=== PATIENT | female | born 1950 | race Caucasian/White ===

== ENCOUNTER → 2019-02-01 12:45 | Outpatient (CLI) | payer MEDICARE, SELFPAY ==
--- NOTE | 2019-02-01 12:53 | CT_ITS ---
CT lung screening EXAM: CT LUNG LOW DOSE WO CONTRAST HISTORY: 100 pack year smoking history asymptomatic for lung cancer ITS.REASON: CURRENT TOBACCO USE ORDERING PHYSICIAN: Fahad Atwood MD PATIENT AGE: 68 years COMPARISON: None TECHNIQUE: The exam was performed on a GE Light Speed [address] scanner using 2.90 mGy CTDI. A low dose helical CT CHEST was performed on a multi-detector scanner. All CT scans at the facility use one or more dose reduction, viz: automated exposure control, ma/kV adjustment per patient size (including targeted exams where dose is matched to indication, i.e. head), or iterative reconstruction technique. The LDCT was performed in a facility that meets the criteria for the screening program. Data regarding this exam was submitted to ACR which is an approved registry. The order for this exam indicates that it came as a result of a lung cancer screening counseling shard decision-making visit that included all the elements required of such a visit including smoking cessation. The radiologist interpreting this exam meets the CMS criteria for the LDCT lung cancer screening program. The exam is reported using the Lung-RADS classification scale and reported to the ACR registry. NOTE: This study was performed for the specific purposes of lung cancer screening and is not an alternative to diagnostic chest CT. RADIATION DOSE: CTDI vol(CT dose Index-volume) = 2.90mG DLP (Dose Length Product) = 96.38 mGcm FINDINGS: COPD changes with scattered nodular opacities and areas of parenchymal fibrosis. Numerous scattered small pulmonary nodules are noted which are noncalcified. There is a calcified nodule in the right lower lobe unchanged. Biapical fibrotic changes are present more extensive on the right. There is an 8 mm nodule in the right apex unchanged. Fibrotic changes are present in the right apex posterior to this nodule.. No new nodules are evident. A stent graft is present within the aorta as before. IMPRESSION: 1. Lung RADS Category: 2, benign 2. Other findings: COPD, old granulomatous disease with scattered areas of scarring. Benign-appearing small bilateral pulmonary nodules. RECOMMENDATIONS: 12 month LDCT follow-up
== END ==
PROVIDERS: PCP Family Medicine; Visit Provider Family Medicine
DX: Z12.2 Encounter for screening for malignant neoplasm of respiratory organs (principal); Z87.891 Personal history of nicotine dependence

== ENCOUNTER 2020-04-29 17:17 | Inpatient (IN) | payer MEDICARE, SELFPAY ==
[2020-04-29] VITALS (12 sets, daily range): BP systolic 94–148; BP diastolic 74–100; PULSE 64–121; RESP 16–18; TEMP 36.4–37.1; O2SAT 94–99; BMI 14.7; BMI 14.6; BMI 12.3
--- NOTE | 2020-04-29 17:26 | PC.NURSE ---
called ct for stroke protocal
--- NOTE | 2020-04-29 17:29 | CT_ITS ---
PROCEDURE: CT HEAD/BRAIN WO CON CLINICAL INDICATION: weakness Altered mental status, altered level of consciousness, confusion, disorientation Right-sided weakness COMPARISON: No exams were available for comparison TECHNIQUE: Axial images obtained. All CT scans at the facility use one or more dose reduction, viz: automated exposure control, ma/kV adjustment per patient size (including targeted exams where dose is matched to indication, i.e. head), or iterative reconstruction technique. FINDINGS: No midline shift, mass effect, intracranial hemorrhage, hydrocephalus, or extra-axial fluid collection is evident. There is generalized atrophy with hypoattenuation of the periventricular white matter consistent with microangiopathic changes. The calvarium has an unremarkable appearance. No mastoid effusion. Mild mucosal thickening noted in the left ethmoid sinus. IMPRESSION: No acute intracranial finding Dictated by: Dallin Busch MD 04/30/2020 08:47 Electronically signed by Dallin Busch MD in [place] 04/30/2020 08:47
--- NOTE | 2020-04-29 17:29 | PC.NURSE ---
RIDDHI MÉNDEZ at
--- NOTE | 2020-04-29 17:33 | PC.NURSE ---
pt taken to ct
--- NOTE | 2020-04-29 17:33 | PC.NURSE ---
fsbs 60
--- NOTE | 2020-04-29 17:36 | XR_ITS ---
PROCEDURE: XR CHEST PORTABLE CLINICAL HISTORY: weakness COMPARISON: CXR CHEST(2 VIEWS-NOT PORTABLE) from 01/24/2013 FINDINGS: Normal heart size. Prior aortic stent graft placed within the thoracic aorta. Mild biapical pleural thickening. Calcified granuloma right midlung. No lobar consolidation or collapse. No acute bony abnormalities. IMPRESSION: No acute findings. Dictated by: Dallin Busch MD 04/29/2020 19:43 Electronically signed by Dallin Busch MD in [place] 04/29/2020 19:43
--- NOTE | 2020-04-29 17:38 | PC.NURSE ---
nell notified of cxr, spoke with fannie
[2020-04-29 18:07] LABS: POC Glucose,Bedside 60 (70-110)
[2020-04-29 18:29] LABS: Basophils % 0.1 % (0.1-2.0); Hematocrit 38.3 % (37.0-47.0); Hemoglobin 11.7 g/dL (12.2-16.2); Mean Corpuscular HGB Conc 30.6 g/dL (31.8-35.4); Mean Corpuscular Hemoglobin 24.3 pg (27.0-31.2); Mean Corpuscular Volume 79.6 fl (81-99); Mean Platelet Volume 7.6 fl (7.4-10.4); Monocytes # 0.8 K/mm3 (0.1-1.0); Neutrophils # 17.4 K/mm3 (1.8-7.8); Neutrophils % 85.9 % (37.0-80.0); Platelet Count 148 K/mm3 (142-424); Red Blood Count 4.81 M/mm3 (4.20-5.40); Red Cell Distribution Width 21.1 % (11.5-17.5); White Blood Count 20.3 K/mm3 (4.8-10.8)
[2020-04-29 18:33] LABS: Chloride 104 mmol/L (98-107); Potassium 3.6 mmoL/L (3.5-5.1); Sodium 138 mmol/L (136-145)
[2020-04-29 18:34] LABS: MANUAL DIFFERENTIAL MANUAL DIFFERENTIAL (MANUAL DIFF)
[2020-04-29 18:35] LABS: Blood Urea Nitrogen 25 mg/dl (7-17); Creatinine Clearance Estimated 30 mL/min (50-200); Estimated Glomerular Filt Rate 157 ml/min (>60); GFR (African American) 190 ML/MIN (>60)
[2020-04-29 18:36] LABS: Alanine Aminotransferase 21 U/L (12-78); Albumin Level 2.1 g/dl (3.5-5.0); Albumin/Globulin Ratio 0.6 (1.1-1.8); Alkaline Phosphatase 125 U/L (38-126); Anion Gap 13.6 mEq/L (5-15); Aspartate Amino Transferase 30 U/L (14-36); Bilirubin,Total 0.5 mg/dl (0.2-1.3); Calcium 7.9 mg/dl (8.4-10.2); Carbon Dioxide 24 mmol/L (22.0-30.0); Globulin 3.8 g/dL (1.3-3.2); Glucose 59 mg/dl (74-100); Total Protein,Serum 5.9 g/dl (6.3-8.2)
--- NOTE | 2020-04-29 18:40 | HMH.EDNEU ---
ED Disposition Clinical Impression: Delirium, Severe sepsis with acute organ dysfunction UTI (urinary tract infection) Qualifiers: Urinary tract infection type: site unspecified Hematuria presence: without hematuria Qualified Code(s): N39.0 - Urinary tract infection, site not specified Disposition: Admitted As Inpatient Condition on Discharge: Fair - Critical Care Critical Care Time: No Attestation: On 04/29/20, the high probability of a clinically significant, sudden or life threatening deterioration of the following system(s) required my full and direct attention, intervention and personal management. The time I documented below is in addition to time spent performing reported procedures but includes the following listed in this critical care notation. Medical Decision Making - Medical Records Medical records reviewed: Yes: I reviewed the patient's medical records. - Stevie Inquiry Pt receiving controlled substance: No Vital Signs: 04/29/20 17:22 04/29/20 18:30 04/29/20 19:00 Temperature 97.6 F Temperature Source Oral Pulse Rate [Left Radial] 64 103 H Respiratory Rate 18 18 17 Blood Pressure [Left Arm] 148/95 H Blood Pressure [Right Arm] 112/78 147/95 H Blood Pressure Mean [Left Arm] 112 Blood Pressure Mean [Right Arm] 89 112 Blood Pressure Source [Left Arm] Automatic Cuff Blood Pressure Source [Right Arm] Automatic Cuff Automatic Cuff Blood Pressure Position [Left Arm] Sitting Blood Pressure Position [Right Arm] Supine Supine 02 Sat by Pulse Oximetry 94 L 96 98 Oxygen Delivery Method Room Air Room Air Room Air 04/29/20 19:30 04/29/20 20:00 Temperature Temperature Source Pulse Rate [Left Radial] 98 H 96 H Respiratory Rate 17 18 Blood Pressure [Left Arm] Blood Pressure [Right Arm] 117/100 H 130/89 Blood Pressure Mean [Left Arm] Blood Pressure Mean [Right Arm] 105 102 Blood Pressure Source [Left Arm] Blood Pressure Source [Right Arm] Automatic Cuff Automatic Cuff Blood Pressure Position [Left Arm] Blood Pressure Position [Right Arm] Supine Supine 02 Sat by Pulse Oximetry 98 98 Oxygen Delivery Method Room Air Room Air - Lab Data Lab results reviewed: Yes: I reviewed the patient's lab results. Lab Results 04/29/20 17:32: POC Glucose 60 L 04/29/20 18:17: WBC 20.3 H*, RBC 4.81, Hgb 11.7 L, Hct 38.3, MCV 79.6 L, MCH 24.3 L, MCHC 30.6 L, RDW 21.1 H, Plt Count 148, MPV 7.6, Neut % (Auto) 85.9 H, Lymph % (Auto) 10.0, [place] % (Auto) 4.0, Eos % (Auto) 0.0 L, Baso % (Auto) 0.1, Neut # (Auto) 17.4 H, Lymph # (Auto) 2.0, [place] # (Auto) 0.8, Eos # (Auto) 0.0, Baso # (Auto) 0.0, Total Counted 100, Neutrophils % (Manual) 84 H, Lymphocytes % (Manual) 11, Monocytes % (Manual) 5, Platelet Estimate Normal, RBC Morphology Normal 04/29/20 18:17: Sodium 138, Potassium 3.6, Chloride 104, Carbon Dioxide 24, Anion Gap 13.6, BUN 25 H, Creatinine 0.40 L, Estimated Creat Clear 30, Estimated GFR 157, Est GFR ( Amer) 190, Glucose 59 L, Calcium 7.9 L, Total Bilirubin 0.5, AST 30, ALT 21, Alkaline Phosphatase 125, Troponin I < 0.01, Total Protein 5.9 L, Albumin 2.1 L, Globulin 3.8 H, Albumin/Globulin Ratio 0.6 L 04/29/20 18:45: Lactate 2.6 H 04/29/20 19:04: Urine Color Yellow, Urine Appearance Cloudy, Urine pH 6.5, Ur Specific [place] >= 1.030, Urine Protein 3+, Urine Glucose (UA) Negative, Urine Ketones 2+, Urine Blood 3+, Urine Nitrate Positive, Urine Bilirubin Negative, Urine Urobilinogen 2.0, Ur Leukocyte Esterase 2+ A, Urine WBC 5-10, Ur Squamous Epith Cells Occasional, Urine Bacteria 1+ 04/29/20 20:38: Troponin I < 0.01 Result diagrams: 04/29/20 18:17 04/29/20 18:17 Orders (Tests/Meds): ED MEDICATIONS Generic Name Dose Route Start Last Admin Trade Name Freq PRN Reason Stop Dose Admin Ertapenem 1 gm/ Sodium 50 mls @ 100 mls/hr 04/29/20 20:30 04/29/20 21:23 Chloride IV 05/13/20 20:29 100 mls/hr Q24H HARRISON Administration Protocol ORDERS Category Date Time Status CT
[2020-04-29 18:51] LABS: Troponin I < 0.01 ng/ml (0.00-0.034)
--- NOTE | 2020-04-29 19:04 | PC.NURSE ---
urine specimen collected via cath; sent to lab
[2020-04-29 19:08] LABS: Microscopic, Urine URINE MICROSCOPIC (MICROSCOPIC)
[2020-04-29 19:11] LABS: Lactic Acid 2.6 mmol/L (0.7-2.1)
[2020-04-29 19:15] LABS: Blood, Urine 3+ (Negative); Color,Urine YELLOW (Yellow); Glucose,Urine (UA) Negative (Negative); Ketones,Urine 2+ (Negative); Leukocyte Esterase,Urine 2+ (Negative); Nitrate,Urine POSITIVE (Negative); PH,Urine 6.5 (5.0-8.5); Protein,Urine 3+ (Negative); Specific Gravity, Urine >= 1.030 (1.005-1.030)
[2020-04-29 19:16] LABS: Appearance,Urine Cloudy (Clear); Bilirubin,Urine Negative (Negative)
--- NOTE | 2020-04-29 19:19 | PC.NURSE ---
report given to Ricorn
--- NOTE | 2020-04-29 19:21 | ECG_ITS ---
APPROVED REPORT Exam: Resting ECG HR:103 bpm ECG Measurements Heart Rate 103 AXES OK 142 P 78 QRSd 86 QRS -58 QT 350 T 81 QTc 458 <Conclusion> Sinus tachycardia,Pac's Noted Left anterior fascicular block Incomplete RBBB Abnormal ECG Electronically signed by : Alvin Samson, 05/01/2020 16:37:45
[2020-04-29 19:31] LABS: Lymphocytes % 11 % (10-50); Monocytes % 5 % (2-9); Neutrophils % 84 % (42-76); RBC Morphology Normal; Total Cells Counted 100
[2020-04-29 19:32] LABS: Platelet Estimate Normal
[2020-04-29 19:41] LABS: Bacteria,Urine 1+ /lpf; Squamous Epithelial Cell,Urine Occasional #/hpf (0-5)
--- NOTE | 2020-04-29 20:24 | PC.NURSE ---
speaking with Dr. Sosa
[2020-04-29 21:18] LABS: Troponin I < 0.01 ng/ml (0.00-0.034)
--- NOTE | 2020-04-29 22:28 | PC.NURSE ---
attempted to give report to MARYANNE Shah asked to call me back
[2020-04-29 22:50] LABS: Reflex Lactic Add Lactic Reflex
--- NOTE | 2020-04-29 23:19 | PC.NURSE ---
report called to MARYANNE Duckworth
--- NOTE | 2020-04-29 23:20 | PC.NURSE ---
this nurse told TJ about pt having difficulty swallowing and recommended a swallow eval. in the AM
[2020-04-29 23:23] LABS: Lactic Acid Follow Up (RFLX 1) 3.9 mmol/L (0.7-2.1)
--- NOTE | 2020-04-29 23:32 | PC.NURSE ---
PT ARRIVED TO THE FLOOR VIA STRETCHER FROM ED @ [id number].
[2020-04-30] VITALS (62 sets, daily range): BP systolic 32–153; BP diastolic 00–75; PULSE 66–124; RESP 16–38; TEMP 35.1–37.1; O2SAT 90–100
[2020-04-30 01:05] LABS: Reflex Lactic (2 hrs) Add Lactic Reflex
[2020-04-30 01:42] LABS: Lactic Acid Follow up (RFLX 2) 3.2 mmol/L (0.7-2.1)
[2020-04-30 05:54] LABS: POC Glucose,Bedside 63 (70-110)
--- NOTE | 2020-04-30 05:54 | ECG_ITS ---
APPROVED REPORT Exam: Resting ECG HR:114 bpm ECG Measurements Heart Rate 114 AXES ID 138 P 77 QRSd 70 QRS -61 QT 328 T -82 QTc 452 <Conclusion> Sinus tachycardia Possible Left atrial enlargement Left anterior fascicular block ST & T wave abnormality, consider inferior ischemia Abnormal ECG Electronically signed by : Enrike Forbes, 04/30/2020 15:33:57
[2020-04-30 06:08] LABS: ABG PCO2 24.2 mmhg (35.0-45.0); ABG PH 7.44 mmol/L (7.35-7.45)
[2020-04-30 06:09] LABS: ABG Base Excess -8.2 mmol/L (-2.4-2.3); ABG Oxygen Saturation 98 % (90-100); ABG TCO2 16 mmhg (23-27)
[2020-04-30 06:10] LABS: Allen's Test Non Applicable; Oxygen 2LPM NC %; Source Right Femoral
[2020-04-30 06:21] LABS: Basophils % 0.1 % (0.1-2.0); Hematocrit 31.8 % (37.0-47.0); Lymphocytes # 1.1 K/mm3 (0.7-4.5); Lymphocytes % 4.8 % (10-50); Mean Corpuscular HGB Conc 31.9 g/dL (31.8-35.4); Mean Corpuscular Volume 78.4 fl (81-99); Mean Platelet Volume 7.8 fl (7.4-10.4); Monocytes # 0.6 K/mm3 (0.1-1.0); Monocytes % 2.8 % (1.7-9.3); Neutrophils # 21.1 K/mm3 (1.8-7.8); Neutrophils % 92.3 % (37.0-80.0); Platelet Count 137 K/mm3 (142-424); Red Blood Count 4.05 M/mm3 (4.20-5.40); Red Cell Distribution Width 21.7 % (11.5-17.5); White Blood Count 22.8 K/mm3 (4.8-10.8)
[2020-04-30 06:22] LABS: MANUAL DIFFERENTIAL MANUAL DIFFERENTIAL (MANUAL DIFF)
[2020-04-30 06:24] LABS: Hemoglobin 10.1 g/dL (12.2-16.2)
[2020-04-30 06:25] LABS: Chloride 110 mmol/L (98-107); Potassium 3.9 mmoL/L (3.5-5.1); Sodium 138 mmol/L (136-145)
[2020-04-30 06:28] LABS: Anion Gap 15.9 mEq/L (5-15); Blood Urea Nitrogen 28 mg/dl (7-17); Calcium 7.3 mg/dl (8.4-10.2); Carbon Dioxide 16 mmol/L (22.0-30.0); Creatinine Clearance Estimated 28 mL/min (50-200); Estimated Glomerular Filt Rate 62 ml/min (>60); GFR (African American) 75 ML/MIN (>60); Glucose 73 mg/dl (74-100); Magnesium 1.9 mg/dl (1.6-2.3)
--- NOTE | 2020-04-30 06:38 | HMH.RR ---
Acute Rapid Response Note - Subjective Date Responded: 04/30/20 Time Responded: 06:00 Provider Note: called to bedside as pt has dev change in mental status- obtunded now but has stable vs and no rhythm change - pt unable to answer questions at this time - Objective Findings: Vital Signs - Last 4 Hours Temperature 98.7 F 04/30/20 04:00 Temperature Source Axillary 04/30/20 04:00 Pulse Rate 114 H 04/30/20 04:00 Respiratory Rate 16 04/30/20 04:00 Blood Pressure 153/66 H 04/30/20 04:00 Blood Pressure Mean 95 04/30/20 04:00 Blood Pressure Source Automatic Cuff 04/30/20 00:48 Blood Pressure Position Supine 04/30/20 00:48 02 Sat by Pulse Oximetry 98 04/30/20 04:00 Oxygen Delivery Method 04/30/20 05:00 Oxygen Flow Rate (LPM) 1 04/30/20 05:00 Lab Results for Past 12 Hours 04/30/20 06:05: Sodium 138, Potassium 3.9, Chloride 110 H, Carbon Dioxide 16 L D, Anion Gap 15.9 H, BUN 28 H, Creatinine 0.90 D, Estimated Creat Clear 28, Estimated GFR 62, Est GFR ( Amer) 75 D, Glucose 73 L D, Calcium 7.3 L, Magnesium 1.9 04/30/20 06:05: WBC 22.8 H*, RBC 4.05 L, Hgb 10.1 L D, Hct 31.8 L, MCV 78.4 L, MCH 25.0 L, MCHC 31.9, RDW 21.7 H, Plt Count 137 L, MPV 7.8, Neut % (Auto) 92.3 H, Lymph % (Auto) 4.8 L, [place] % (Auto) 2.8, Eos % (Auto) 0.0 L, Baso % (Auto) 0.1, Neut # (Auto) 21.1 H, Lymph # (Auto) 1.1, [place] # (Auto) 0.6, Eos # (Auto) 0.0, Baso # (Auto) 0.0 04/30/20 06:00: Specimen Source Right femoral, O2 % 2lpm nc, ABG pH 7.44, ABG pCO2 24.2 L, ABG pO2 109.0 H, ABG HCO3 16.0 L, ABG Total CO2 16 L, ABG O2 Saturation 98, ABG Base Excess -8.2 L, Dallin Test Non applicable 04/30/20 05:47: POC Glucose 63 L 04/30/20 01:20: Lactate 3.2 H 04/29/20 23:04: Lactate 3.9 H 04/29/20 20:38: Troponin I < 0.01 04/29/20 19:04: Urine Color Yellow, Urine Appearance Cloudy, Urine pH 6.5, Ur Specific [place] >= 1.030, Urine Protein 3+, Urine Glucose (UA) Negative, Urine Ketones 2+, Urine Blood 3+, Urine Nitrate Positive, Urine Bilirubin Negative, Urine Urobilinogen 2.0, Ur Leukocyte Esterase 2+ A, Urine WBC 5-10, Ur Squamous Epith Cells Occasional, Urine Bacteria 1+ 04/29/20 18:45: Lactate 2.6 H 04/29/20 18:17: Sodium 138, Potassium 3.6, Chloride 104, Carbon Dioxide 24, Anion Gap 13.6, BUN 25 H, Creatinine 0.40 L, Estimated Creat Clear 30, Estimated GFR 157, Est GFR ( Amer) 190, Glucose 59 L, Calcium 7.9 L, Total Bilirubin 0.5, AST 30, ALT 21, Alkaline Phosphatase 125, Troponin I < 0.01, Total Protein 5.9 L, Albumin 2.1 L, Globulin 3.8 H, Albumin/Globulin Ratio 0.6 L 04/29/20 18:17: Total Counted 100, Neutrophils % (Manual) 84 H, Lymphocytes % (Manual) 11, Monocytes % (Manual) 5, Platelet Estimate Normal, RBC Morphology Normal My Orders Category Date Time Status Activity as ordered ORDER Care 04/29/20 22:11 Active Szymanski, Insert [Urinary Catheter, Insert] ONCE Care 04/30/20 06:33 Active Measure weight DAILY Care 04/29/20 22:11 Active Basic Metabolic Panel AMLAB Lab 04/30/20 06:05 Completed CMP [Comprehensive Metabolic Panel] Stat Lab 04/30/20 06:34 Ordered Complete Blood Count Auto Diff AMLAB Lab 04/30/20 06:05 Results Complete Blood Count Auto Diff Stat Lab 04/30/20 06:34 Ordered Lactic Acid Follow Up (RFLX 1) Stat Lab 04/29/20 23:04 Completed Lactic Acid Follow up (RFLX 2) Stat Lab 04/30/20 01:20 Completed Magnesium AMLAB Lab 04/30/20 06:05 Completed 0.9 % Sodium Chloride [Saline Flush 10mL Syringe] Med 04/29/20 22:11 Ordered 10 ml IV NEEDED PRN 0.9 % Sodium Chloride [Sod Chlor 0.9% 1000mL Bag] 1,000 Med 04/29/20 22:11 Ordered ml IV 75 mls/hr Acetaminophen [Acetaminophen 325mg tab] Med 04/29/20 22:11 Ordered 650 mg PO Q4HP PRN Ertapenem Sodium [Invanz 1gm Vial] 1 gm Med 04/30/20 20:30 Ordered 0.9 % Sodium Chloride [Sod Chlor 0.9% 50mL bag] 50 ml IV Q24H Ondansetron HCl/Pf [Zofran 4mg/2mL vial] Med 04/29/20 22:11 Ordered 4 mg IV Q8HP PRN Admit Patient; Inpt/Acute Routine Oth
--- NOTE | 2020-04-30 07:08 | HMH.PHAVTE ---
[facility] Pharmacy VTE Monitoring - Patient Demographics Admission date: 04/29/20 Report Date: 04/30/20 Time: 07:08 Allergies/Adverse Reactions: Patient Allergies iodine Allergy (Unknown, Verified 04/30/20 06:56) Unknown allergy reaction povidone-iodine [From Iodex] Allergy (Unknown, Verified 04/30/20 06:56) Unknown allergy reaction IODINE Allergy (Unknown, Uncoded 04/30/20 06:55) Unknown allergy reaction SHELLFISH Allergy (Unknown, Uncoded 04/30/20 06:55) Unknown allergy reaction Height: 1.68 m Weight: 34.7 kg Patient Problems: Current Active Problems Delirium (Acute) UTI (urinary tract infection) (Acute) Severe sepsis with acute organ dysfunction (Acute) - VTE Risk Labs: VTE Related Lab Results Hgb 10.1 g/dL (12.2-16.2) L D 04/30/20 06:05 Hct 31.8 % (37.0-47.0) L 04/30/20 06:05 Plt Count 137 K/mm3 (142-424) L 04/30/20 06:05 BUN 28 mg/dl (7-17) H 04/30/20 06:05 Creatinine 0.90 mg/dl (0.52-1.04) D 04/30/20 06:05 Estimated Creat Clear 28 mL/min (50-200) 04/30/20 06:05 VTE Score: 4 Clinical Trial Participant: No - Prophylaxis VTE Prophylaxis Ordered?: Yes Types of VTE Prophylaxis: TEDS Knee High
--- NOTE | 2020-04-30 07:09 | HMH.ACPN2 ---
Internal Medicine - PN: Subj *Date: 04/30/20 *Time: 07:09 Interval history: This 69-year-old white female is chronically debilitated. She had grown progressively weaker and was brought to the emergency room during the night. Her caregiver reported along with the progressive weakness a facial droop on the right. Patient was admitted from the emergency room with concerns of urinary tract infection. Dr. Flynn was called to rapid response early this morning because the patient had become more obtunded. Blood gas at that time was adequate but indeed she was less responsive. CT was obtained on admission and did not show any evidence of a stroke but of course that is a consideration. Dr. Flynn called me and I came in to see the patient this morning. She is quite obtunded. She has no respiratory distress. She is small and frail. Her heart rate is regular. Lungs seem clear and there is no respiratory distress. Abdomen is soft. Her urine is quite brown looking. She has no leg edema. Exam Vital signs and Labs for Last 24 Hours: Temp Pulse Resp BP Pulse Ox 98.7 F 114 H 16 153/66 H 98 04/30/20 04:00 04/30/20 04:00 04/30/20 04:00 04/30/20 04:00 04/30/20 04:00 Laboratory Results - last 24 hr 04/29/20 17:32: POC Glucose 60 L 04/29/20 18:17: WBC 20.3 H*, RBC 4.81, Hgb 11.7 L, Hct 38.3, MCV 79.6 L, MCH 24.3 L, MCHC 30.6 L, RDW 21.1 H, Plt Count 148, MPV 7.6, Neut % (Auto) 85.9 H, Lymph % (Auto) 10.0, [place] % (Auto) 4.0, Eos % (Auto) 0.0 L, Baso % (Auto) 0.1, Neut # (Auto) 17.4 H, Lymph # (Auto) 2.0, [place] # (Auto) 0.8, Eos # (Auto) 0.0, Baso # (Auto) 0.0, Total Counted 100, Neutrophils % (Manual) 84 H, Lymphocytes % (Manual) 11, Monocytes % (Manual) 5, Platelet Estimate Normal, RBC Morphology Normal 04/29/20 18:17: Sodium 138, Potassium 3.6, Chloride 104, Carbon Dioxide 24, Anion Gap 13.6, BUN 25 H, Creatinine 0.40 L, Estimated Creat Clear 30, Estimated GFR 157, Est GFR ( Amer) 190, Glucose 59 L, Calcium 7.9 L, Total Bilirubin 0.5, AST 30, ALT 21, Alkaline Phosphatase 125, Troponin I < 0.01, Total Protein 5.9 L, Albumin 2.1 L, Globulin 3.8 H, Albumin/Globulin Ratio 0.6 L 04/29/20 18:45: Lactate 2.6 H 04/29/20 19:04: Urine Color Yellow, Urine Appearance Cloudy, Urine pH 6.5, Ur Specific [place] >= 1.030, Urine Protein 3+, Urine Glucose (UA) Negative, Urine Ketones 2+, Urine Blood 3+, Urine Nitrate Positive, Urine Bilirubin Negative, Urine Urobilinogen 2.0, Ur Leukocyte Esterase 2+ A, Urine WBC 5-10, Ur Squamous Epith Cells Occasional, Urine Bacteria 1+ 04/29/20 20:38: Troponin I < 0.01 04/29/20 23:04: Lactate 3.9 H 04/30/20 01:20: Lactate 3.2 H 04/30/20 05:47: POC Glucose 63 L 04/30/20 06:00: Specimen Source Right femoral, O2 % 2lpm nc, ABG pH 7.44, ABG pCO2 24.2 L, ABG pO2 109.0 H, ABG HCO3 16.0 L, ABG Total CO2 16 L, ABG O2 Saturation 98, ABG Base Excess -8.2 L, Dallin Test Non applicable 04/30/20 06:05: WBC 22.8 H*, RBC 4.05 L, Hgb 10.1 L D, Hct 31.8 L, MCV 78.4 L, MCH 25.0 L, MCHC 31.9, RDW 21.7 H, Plt Count 137 L, MPV 7.8, Neut % (Auto) 92.3 H, Lymph % (Auto) 4.8 L, [place] % (Auto) 2.8, Eos % (Auto) 0.0 L, Baso % (Auto) 0.1, Neut # (Auto) 21.1 H, Lymph # (Auto) 1.1, [place] # (Auto) 0.6, Eos # (Auto) 0.0, Baso # (Auto) 0.0 04/30/20 06:05: Sodium 138, Potassium 3.9, Chloride 110 H, Carbon Dioxide 16 L D, Anion Gap 15.9 H, BUN 28 H, Creatinine 0.90 D, Estimated Creat Clear 28, Estimated GFR 62, Est GFR ( Amer) 75 D, Glucose 73 L D, Calcium 7.3 L, Magnesium 1.9 I & O for Last 24 hours: Intake & Output 04/27/20 04/28/20 04/29/20 04/30/20 11:59 11:59 11:59 11:59 Weight 76 lb 8 oz - Constitutional obtunded - *Routine HEENT Exam Eye: Present: PERRL (But she has no focused gaze.) ENT: Present: mucous membranes moist - *Routine Respiratory Exam Present: CTA bilaterally - *Routine Cardiovascular Exam Present: RRR - *Routine Abdominal Exam Present: soft. Absent: tenderness - *Routine Extremities Exam Absent:
[2020-04-30 07:14] LABS: Chloride 109 mmol/L (98-107); Sodium 139 mmol/L (136-145)
[2020-04-30 07:15] LABS: Potassium 3.9 mmoL/L (3.5-5.1)
[2020-04-30 07:17] LABS: Alanine Aminotransferase 14 U/L (12-78); Albumin Level 1.7 g/dl (3.5-5.0); Albumin/Globulin Ratio 0.5 (1.1-1.8); Alkaline Phosphatase 232 U/L (38-126); Anion Gap 17.9 mEq/L (5-15); Aspartate Amino Transferase 30 U/L (14-36); Bilirubin,Total 0.5 mg/dl (0.2-1.3); Blood Urea Nitrogen 27 mg/dl (7-17); Calcium 7.3 mg/dl (8.4-10.2); Carbon Dioxide 16 mmol/L (22.0-30.0); Creatinine Clearance Estimated 28 mL/min (50-200); Estimated Glomerular Filt Rate 71 ml/min (>60); GFR (African American) 86 ML/MIN (>60); Globulin 3.2 g/dL (1.3-3.2); Glucose 72 mg/dl (74-100); Total Protein,Serum 4.9 g/dl (6.3-8.2)
[2020-04-30 07:29] LABS: Lymphocytes % 2 % (10-50); Monocytes % 3 % (2-9); Neutrophils % 95 % (42-76); Total Cells Counted 100
[2020-04-30 07:30] LABS: Anisocytosis 1+; Hypochromasia 1+; Microcytosis 1+
[2020-04-30 07:31] LABS: Platelet Estimate Normal; Tear Drop Cells 1+
--- NOTE | 2020-04-30 08:11 | PC.NURSE ---
0540 this RN and MckaylaRN went to bath pt. Pt's breathing while being turned became apneic. Pt was lethargic from previous baseline, unable to answer questions. Pt unable to grasp this RN's hands or make ay purposeful movement. 0546- Vitals assessed. Finger stick was 63. House notified to call Rapid Red. Charge nurse bedside at this time. 0550- MD at bedside to assess 0555- ABG obtained by DM from right femoral. EKG, Szymanski inserted by Jo ED medic. CBC,CMP,500 NS bolus at this time as well. 0600- Ativan 0.5mg IV given 0605- #20g IJ inserted by Jo, ED medic 0610- Keppra IV ordered per 0613- Verified Keppra dose with nurse practitioner physicians assistant pharmacy. 500mg IV now started by Nasreen,RN 0621- Gee.MD notified MD Ian of pt status
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
--- NOTE | 2020-04-30 09:05 | XR_ITS ---
PROCEDURE: XR CHEST PORTABLE CLINICAL HISTORY: ET TUBE PLACEMENT COMPARISON: CXR CHEST(2 VIEWS-NOT PORTABLE) from 01/24/2013 XR CHEST PORTABLE from 04/29/2020 FINDINGS: 8:26 a.m. Endotracheal tube has been placed. The tip is in good position 4 cm above the larry at the T5 level. Overlying artifact from monitoring device is noted. Normal heart size. COPD. Aortic stent graft present at the thoracic aorta. There is gaseous distention of the stomach IMPRESSION: Good placement of endotracheal tube. Findings were called to the floor and given to Amelia at 04/30/2020 at 9:15 a.m. Dictated by: Dallin Busch MD 04/30/2020 09:20 Electronically signed by Dallin Busch MD in [place] 04/30/2020 09:20
[2020-04-30 09:39] LABS: ABG HCO3 15.7 mmhg (22.0-26.0); ABG Oxygen Saturation 100 % (90-100); ABG PCO2 33.8 mmhg (35.0-45.0); ABG PH 7.29 mmol/L (7.35-7.45); ABG PO2 475.3 mmhg (80-100); ABG TCO2 16.7 mmhg (23-27)
[2020-04-30 09:43] LABS: Oxygen 100 %; PEEP 5; Pressure Support 10; Tidal Volume 300; Vent Rate 14
[2020-04-30 09:44] LABS: Allen's Test Non Applicable; Source Left Femoral
--- NOTE | 2020-04-30 10:20 | PC.NURSE ---
md called to check on patient. did relay current vitals. also unable to obtain a bp in the r arm at this time.
--- NOTE | 2020-04-30 11:04 | PC.NURSE ---
Addendum entered by Amelia Torres RN 04/30/20 14:18: ET TUBE IS AT 22CM AT THE LIP. NOT 20 Addendum entered by Amelia Torres RN 04/30/20 11:43: during this time levophed was titrated up depending on bp. levophed drip ended up at 20mcg/min. once patient bp began to stabilize it was titrated down based on bp tolerance. currently drip is at 10mcg/min Original Note: CODE BLUE DOCUMENTATION 0818-family came out of room stating patient was not breathing 0820- staff at bedside no pulse cpr began, marry dyer and gary alcantara at bedside 0823 pulse check and patient noted to have a pulse and was ronnie in the 40s. 0824 atropin 0.5mg administered and ns was being bolused in. 32/palp bp, patient intubated with a 7 et tube 20 at the lip 0829 1mg epi administered 0834 levo gtt started at 0.5mcg.min 0839 57/24 l ankle bp 0841 l wrist 22 gauge iv placed and toño at bedside 0844 91/65 bp pulse of 66 94 % 0849 patient transferred to icu in room [id number] chest xray obtained 0858 rectal temp 96.3 bp 123/[address] schultz called stating et tube in good placement 0922 70/doppler in l arm 0925 automatic bp of 86/32 0930 automatic bp of 89/50 heart rate 116 0950 94/57 automatic bp multiple attempts made to get a manual bp in r arm. use of doppler. unable to find pulse in r arm is aware.
--- NOTE | 2020-04-30 11:17 | HMH.RR ---
Acute Rapid Response Note - Subjective Date Responded: 04/30/20 Provider Note: This is actually a code blue note. Patient's sister noticed she stopped breathing this morning around 8:15 am. She alerted nursing staff and code blue was activated. Several physicians responded. Pt did not have a pulse and HR was around 40. CPR and ACLS protocol initiated. Pt received one dose of Atropine and 2 doses of Epinephrine. Pulse returned, BP was low so IV fluid bolus was given and Levophed drip was initiated. Patient was intubated and transferred to the step down unit. Critical nature of patient's illness discussed with her sister who is her primary direct care staffer. - Objective Findings: Vital Signs - Last 4 Hours Temperature 98.7 F 04/30/20 05:46 Temperature Source Rectal 04/30/20 05:46 Pulse Rate 109 H 04/30/20 06:03 Respiratory Rate 24 04/30/20 06:03 Blood Pressure 96/64 L 04/30/20 06:03 Blood Pressure Mean 74 04/30/20 06:03 Blood Pressure Source Automatic Cuff 04/30/20 06:03 Blood Pressure Position Supine 04/30/20 06:03 02 Sat by Pulse Oximetry 93 L 04/30/20 10:39 Oxygen Delivery Method 04/30/20 10:39 Oxygen Flow Rate (LPM) 2 04/30/20 07:00 Lab Results for Past 12 Hours 04/30/20 09:28: Specimen Source Left femoral, O2 % 100, ABG pH 7.29 L, ABG pCO2 33.8 L, ABG pO2 475.3 H, ABG HCO3 15.7 L, ABG Total CO2 16.7 L, ABG O2 Saturation 100, ABG Base Excess -11.0 L, Dallin Test Non applicable, Vent Rate 14, Tidal Volume 300, PEEP 5 04/30/20 06:05: Sodium 139, Potassium 3.9, Chloride 109 H, Carbon Dioxide 16 L, Anion Gap 17.9 H, BUN 27 H, Creatinine 0.80, Estimated Creat Clear 28, Estimated GFR 71, Est GFR ( Amer) 86, Glucose 72 L, Calcium 7.3 L, Total Bilirubin 0.5, AST 30, ALT 14 D, Alkaline Phosphatase 232 H, Total Protein 4.9 L, Albumin 1.7 L D, Globulin 3.2, Albumin/Globulin Ratio 0.5 L 04/30/20 06:05: Sodium 138, Potassium 3.9, Chloride 110 H, Carbon Dioxide 16 L D, Anion Gap 15.9 H, BUN 28 H, Creatinine 0.90 D, Estimated Creat Clear 28, Estimated GFR 62, Est GFR ( Amer) 75 D, Glucose 73 L D, Calcium 7.3 L, Magnesium 1.9 04/30/20 06:05: WBC 22.8 H*, RBC 4.05 L, Hgb 10.1 L D, Hct 31.8 L, MCV 78.4 L, MCH 25.0 L, MCHC 31.9, RDW 21.7 H, Plt Count 137 L, MPV 7.8, Neut % (Auto) 92.3 H, Lymph % (Auto) 4.8 L, [place] % (Auto) 2.8, Eos % (Auto) 0.0 L, Baso % (Auto) 0.1, Neut # (Auto) 21.1 H, Lymph # (Auto) 1.1, [place] # (Auto) 0.6, Eos # (Auto) 0.0, Baso # (Auto) 0.0, Total Counted 100, Neutrophils % (Manual) 95 H, Lymphocytes % (Manual) 2 L, Monocytes % (Manual) 3, Platelet Estimate Normal, RBC Morphology Not Reportable, Hypochromasia 1+, Anisocytosis 1+, Microcytosis 1+, Tear Drop Cells 1+ 04/30/20 06:00: Specimen Source Right femoral, O2 % 2lpm nc, ABG pH 7.44, ABG pCO2 24.2 L, ABG pO2 109.0 H, ABG HCO3 16.0 L, ABG Total CO2 16 L, ABG O2 Saturation 98, ABG Base Excess -8.2 L, Dallin Test Non applicable 04/30/20 05:47: POC Glucose 63 L 04/30/20 01:20: Lactate 3.2 H 04/29/20 23:04: Lactate 3.9 H My Orders Category Date Time Status TEDS - Graduated comp stocking ONCE Care 04/30/20 07:08 Active XR chest portable Stat Exams 04/30/20 09:05 Completed POC Glucose,Bedside Routine Lab 04/30/20 05:47 Completed 0.9 % Sodium Chloride [Saline Flush 10mL Syringe] Med 04/30/20 09:44 Active 10 ml IV NEEDED PRN 0.9 % Sodium Chloride [Sod Chlor 0.9% 1000mL Bag] 1,000 Med 04/30/20 09:44 Active ml IV 75 mls/hr 0.9 % Sodium Chloride [Sod Chlor 0.9% 100mL Bag] 100 ml Med 04/30/20 06:22 Discontinued IV As directed 0.9 % Sodium Chloride [Sodium Chloride 0.9% 10mL Vial] Med 04/30/20 05:59 Discontinued 10 ml IV .STK-MED ONE Acetaminophen [Acetaminophen 325mg tab] Med 04/30/20 09:44 Active 650 mg PO Q4HP PRN Dextrose 5 % in Water [Dextrose 5% Water 250 mL IV] 250 Med 04/30/20 09:44 Active ml Norepinephrine Bitartrate [Levophed 4mg/4mL vial] 8 mg IV 0.5 mcg/min Ertapenem Sodium [Invanz 1gm
--- NOTE | 2020-04-30 12:34 | PC.NURSE ---
Levophed drip titrated from 8mcg/min to 9mcg/min r/t bp of 73/40
--- NOTE | 2020-04-30 12:42 | PC.NURSE ---
fio2 on vent decreased to 60% by respiratory therapy at this time r/t sat of 100% on fio2 of 100. will continue to monitor
--- NOTE | 2020-04-30 13:04 | PC.NURSE ---
md was relayed that patient fsbs was 56 stated to add dextrose to fluids, also made him aware of her becoming stiff in her arms in a posturing like way. he also stated to hold off on ng tube at this time. will continue to monitor patient and adjust levophed as needed
[2020-04-30 13:15] LABS: POC Glucose,Bedside 56 (70-110)
--- NOTE | 2020-04-30 15:08 | PC.NURSE ---
CHECKED COMPATABILITY CHART. LEVOPHED AND POTASSIUM CAN BE RUN TOGETHER. ALREADY VERIFIED LEVOPHED IS COMPATIBLE WITH D5NS
--- NOTE | 2020-04-30 15:49 | PC.NURSE ---
SINCE INTUBATION PATIENT HAS BEEN STABLE. SHE CONTINUES TO BREATHE ABOUT 10-15 OVER THE VENT. AT BEGINNING DID NOTICE ATTEMPTS AT SWALLOWING. GAG REFLEX IS LES PROMINENT NOW WITH SUCTIONING. NO SEDATION. PUPILS ARE REACTIVE. R ARM NOW HAS PALPABLE PULSE. SWELLING NOTED IN HANDS AND FEET. SOME WEAPING OF SKIN NOTED. LEVOPHED DRIP HAS BEEN MAINTAINED AT ABOUT 9-10MCG/MIN. PATIENT RECTAL TEMP HAS BEEN LOW AND MD IS AWARE. SINCE ADDING D5 TO FLUIDS ITS NOTED THAT FSBS HAS INCREASED FROM 56 TO 117. LUNGS HAVE BEEN NOTED TO HAVE RONCHI AND WHEEZING AT TIMES. PATIENT IS BEING TURNED EVERY 2 HOURS. NOTED TO HAVE A SMALL AREA OF BREAK DOWN ON R HIP POLYMEM APPLIED. REDNESS TO BONY AREAS. FEET CONTINUE TO BE COLD AND MOTTLED. ORAL CARE HAS BEEN EVERY 2 HOURS WITH SWAB AND SUCTIONING. USING ORAL CARE KITS. LIP MOISTURIZER HAS ALSO BEEN APPLIED EVERY 2 HOURS. FAMILY REMAINS AT BEDSIDE. PATIENT HAS MINIMAL SECRETIONS WITH SUCTIONING HOWEVER O2 SATS DO IMPROVE AFTER SUCTIONING, SO FREQUENT SUCTION HAS BEEN DONE NEEDED. URINE OUTPUT HAS ONLY BEEN ABOUT 10ML.HR AND MD IS AWARE, URINE REMAINS A DARK TEA COLOR WITH SEDIMENT NOTED.PATIENT HAS BEEN SINUS TACH ON MONITOR. WILL CONTINUE TO MONITOR.
[2020-04-30 15:56] LABS: POC Glucose,Bedside 117 (70-110)
--- NOTE | 2020-04-30 17:12 | PC.NURSE ---
did have long discussion with patient sister about plan of care. gave education on ventilator and levophed drip. sister appears to have a better understanding on the plan of care. did address with sister about what she would want if patient was to lose a pulse. did educate her on what would happen if this occurred and the process of CPR. she was able to verbalize understanding. patient stated she would think about what she would want if that was to occur; and we would readdress
--- NOTE | 2020-04-30 23:05 | PC.NURSE ---
notified dr. lundberg of decreased o2 sats on 100% fio2, increased respiratory rate, heart rate and absents of urine output of the last two hours. family at bedside. no new orders at this time.
[2020-05-01] VITALS (35 sets, daily range): BP systolic 95–147; BP diastolic 30–88; PULSE 98–120; RESP 36–44; TEMP 36.7–36.9; O2SAT 97–100; BMI 17.0
--- NOTE | 2020-05-01 00:18 | PC.NURSE ---
discussion held with sister at bedside concerning code status. sister stated i know she wouldn't want this, we've talked about it before, but if i don't let them do it then it's like i'm killing her. i know it's selfish but i just don't want to let her go. explained that dnr does not mean that we are going to stop any treatment and she could change her mind at any time. patient remains full code. mottling of extremities have increased.
--- NOTE | 2020-05-01 00:53 | PC.NURSE ---
0000 blood pressure decreasing, levophed drip increased to 10mcq/min. will continue to monitor.
--- NOTE | 2020-05-01 00:54 | PC.NURSE ---
blood pressure continues to be low,levophed drip increased to 12 mcq/min. will continue to monitor.
--- NOTE | 2020-05-01 02:53 | PC.NURSE ---
0230 patient has2 periods of activity where patient head, right shoulder and right arm jerks. 1 st episode lasted approximately 30 seconds, the second episode lasted approximately 2 minutes. pupils remain 3 and sluggishly active. no gag reflex has been present this shift. patient mottling of peripheral extremities continue to increase in mottling. dr. lundberg notified of seizure activity, new order received and carried out. blood pressure continues to gradually drop requiring increase in levophed. drip currently at 13 mqc/min. respiratory rate continue to increase as well, currently 38-42 breaths per minute. sister at bedside, education given on current status and course of action. will continue to monitor.
--- NOTE | 2020-05-01 03:04 | PC.NURSE ---
levophed drip increased to 15mcq/min for decreased blood pressure. will continue to monitor.
--- NOTE | 2020-05-01 03:21 | PC.NURSE ---
levophed drip increased to 20mcq/min, patient continues not producing urine. will continue to monitor.
--- NOTE | 2020-05-01 04:19 | PC.NURSE ---
levophed drip increased to 22mcq/min to increase blood pressure. will continue to monitor.
--- NOTE | 2020-05-01 05:11 | PC.NURSE ---
attempted to bath and change sheets, explained to sister that the patient is very fragile and may not do well with the turning. explained that there is nothing more with the ventilator to help her breath any better. explained that the medication to keep her blood pressure up is almost to the highest dose allowed and we are getting closer to the point of having to add another medication to assist maintaining blood pressure. sister opted to not bath and change sheets but just change the pillow cases.
--- NOTE | 2020-05-01 06:00 | XR_ITS ---
PROCEDURE: XR CHEST PORTABLE CLINICAL HISTORY: INTUBATED PATIENT- PROTOCOL Respiratory failure COMPARISON: CXR CHEST(2 VIEWS-NOT PORTABLE) from 01/24/2013 XR CHEST PORTABLE from 04/29/2020 XR CHEST PORTABLE from 04/30/2020 FINDINGS: The cardiomediastinal silhouette and pulmonary vascularity are within normal limits. Endotracheal tube is present. The tip is in good position 3.7 cm above the larry. Lungs remain clear. Significant overlying artifact noted from monitoring devices. Right EJ catheter present No acute bony abnormalities. IMPRESSION: Overall no change. Good position of endotracheal tube Dictated by: Dallin Busch MD 05/01/2020 07:44 Electronically signed by Dallin Busch MD in [place] 05/01/2020 07:44
--- NOTE | 2020-05-01 06:02 | PC.NURSE ---
Two attemps for ABG'S this am with NO reuslts. BP 105/34 at this time. Will try again later this am.
[2020-05-01 06:38] LABS: Chloride 116 mmol/L (98-107); Potassium 5.3 mmoL/L (3.5-5.1); Sodium 140 mmol/L (136-145)
[2020-05-01 06:41] LABS: Alanine Aminotransferase 37 U/L (12-78); Albumin Level 1.6 g/dl (3.5-5.0); Albumin/Globulin Ratio 0.5 (1.1-1.8); Alkaline Phosphatase 442 U/L (38-126); Anion Gap 14.3 mEq/L (5-15); Aspartate Amino Transferase 121 U/L (14-36); Bilirubin,Total 0.8 mg/dl (0.2-1.3); Blood Urea Nitrogen 30 mg/dl (7-17); Carbon Dioxide 15 mmol/L (22.0-30.0); Creatinine Clearance Estimated 31 mL/min (50-200); Estimated Glomerular Filt Rate 49 ml/min (>60); GFR (African American) 59 ML/MIN (>60); Total Protein,Serum 4.6 g/dl (6.3-8.2)
[2020-05-01 06:42] LABS: Glucose 209 mg/dl (74-100)
[2020-05-01 06:48] LABS: Calcium 6.8 mg/dl (8.4-10.2)
--- NOTE | 2020-05-01 06:50 | PC.NURSE ---
0600 levophed increased for low blood pressure. currently at 25mcq/min. patient remains unresponsive to any type of stimulation. has had no further seizure activity since ativan given. urine output has been 0-5 ml an hour, urine is dark brown with the consistency of purulent drainage. sister remains at bedside. will continue to monitor.
--- NOTE | 2020-05-01 07:40 | SW/DCPLANNER ---
Addendum entered by Kaci Giordano 05/01/20 09:24: PATIENT IS CONVERTING TO COMFORT CARE, CAREGIVER AT BEDSIDE... STAFF WILL OFFER SUPPORT TO PATIENT AND CAREGIVER... Original Note: PATIENT ADMITTED TO [facility] WITH A PRIMARY DIAGNOSIS OF ACUTE DELIRIUM... SHE HAS BEEN DEBILITATED FOR SOMETIME... SHE IS FROM HOME AND HAS A CAREGIVER.. AT THIS TIME PATIENT IS TOO ILL TO DISCUSS ANY TYPE OF DISCHARGE PLANNING WITH HER OR HER CAREGIVER. I WILL BE AVAILABLE TO ASSIST WITH ANY PLANS INDICATED BY MD WHEN STABLE TO DO SO...
[2020-05-01 08:21] LABS: Basophils # 0.4 K/mm3 (0-0.2); Basophils % 0.9 % (0.1-2.0); Hematocrit 35.9 % (37.0-47.0); Hemoglobin 10.7 g/dL (12.2-16.2); Lymphocytes # 0.7 K/mm3 (0.7-4.5); Lymphocytes % 1.8 % (10-50); Mean Corpuscular HGB Conc 29.6 g/dL (31.8-35.4); Mean Corpuscular Hemoglobin 24.5 pg (27.0-31.2); Mean Corpuscular Volume 82.6 fl (81-99); Mean Platelet Volume 8.9 fl (7.4-10.4); Monocytes # 1.3 K/mm3 (0.1-1.0); Monocytes % 3.1 % (1.7-9.3); Neutrophils # 38.1 K/mm3 (1.8-7.8); Neutrophils % 94.1 % (37.0-80.0); Platelet Count 72 K/mm3 (142-424); Red Blood Count 4.35 M/mm3 (4.20-5.40); Red Cell Distribution Width 21.1 % (11.5-17.5)
[2020-05-01 08:26] LABS: White Blood Count 40.5 K/mm3 (4.8-10.8)
[2020-05-01 08:30] LABS: MANUAL DIFFERENTIAL MANUAL DIFFERENTIAL (MANUAL DIFF)
[2020-05-01 08:41] LABS: ABG Base Excess -16.3 mmol/L (-2.4-2.3); ABG HCO3 10.3 mmhg (22.0-26.0); ABG Oxygen Saturation 100 % (90-100); ABG PCO2 21.8 mmhg (35.0-45.0); ABG PH 7.29 mmol/L (7.35-7.45); ABG PO2 483.8 mmhg (80-100); ABG TCO2 10.9 mmhg (23-27)
[2020-05-01 08:44] LABS: Oxygen 100 %; Tidal Volume 300
[2020-05-01 08:45] LABS: Allen's Test Non Applicable; PEEP 5; Pressure Support 10; Source Left Femoral; Vent Rate 14
--- NOTE | 2020-05-01 08:47 | HMH.ACPN2 ---
<Leslie Sahu - Last Filed: 05/01/20 08:47> Internal Medicine - PN: Subj *Date: 05/01/20 *Time: 08:47 Interval history: Patient is currently maxed on her Levophed drip. Nursing states she had 2 seizures last night. She has not been responsive since intubation. Numerous attempts have been made to get ABGs with no results. Her pressures remain low. She has had no further seizure activity this a.m. since Ativan was given. Her urine output has decreased. Exam Vital signs and Labs for Last 24 Hours: Temp Pulse Resp BP Pulse Ox 98.0 F 103 H 44 H 107/30 L 97 05/01/20 08:00 05/01/20 08:00 05/01/20 08:00 05/01/20 08:00 05/01/20 08:00 Laboratory Results - last 24 hr 04/30/20 09:28: Specimen Source Left femoral, O2 % 100, ABG pH 7.29 L, ABG pCO2 33.8 L, ABG pO2 475.3 H, ABG HCO3 15.7 L, ABG Total CO2 16.7 L, ABG O2 Saturation 100, ABG Base Excess -11.0 L, Dallin Test Non applicable, Vent Rate 14, Tidal Volume 300, PEEP 5 04/30/20 11:25: POC Glucose 56 L 04/30/20 15:48: POC Glucose 117 H 05/01/20 05:55: Sodium 140, Potassium 5.3 H D, Chloride 116 H, Carbon Dioxide 15 L, Anion Gap 14.3, BUN 30 H, Creatinine 1.10 H D, Estimated Creat Clear 31, Estimated GFR 49 L, Est GFR ( Amer) 59 D, Glucose 209 H D, Calcium 6.8 L, Total Bilirubin 0.8, AST 121 H D, ALT 37 D, Alkaline Phosphatase 442 H, Total Protein 4.6 L, Albumin 1.6 L, Globulin 3.0, Albumin/Globulin Ratio 0.5 L 05/01/20 06:00: Specimen Source Left femoral, O2 % 100, ABG pH 7.29 L, ABG pCO2 21.8 L, ABG pO2 483.8 H, ABG HCO3 10.3 L, ABG Total CO2 10.9 L, ABG O2 Saturation 100, ABG Base Excess -16.3 L, Dall[place] Test Non applicable, Vent Rate 14, Tidal Volume 300, PEEP 5 05/01/20 07:50: WBC 40.5 H* D, RBC 4.35, Hgb 10.7 L, Hct 35.9 L, MCV 82.6, MCH 24.5 L, MCHC 29.6 L, RDW 21.1 H, Plt Count 72 L D, MPV 8.9, Neut % (Auto) 94.1 H, Lymph % (Auto) 1.8 L, [place] % (Auto) 3.1, Eos % (Auto) 0.0 L, Baso % (Auto) 0.9, Neut # (Auto) 38.1 H, Lymph # (Auto) 0.7, [place] # (Auto) 1.3 H, Eos # (Auto) 0.0, Baso # (Auto) 0.4 H I & O for Last 24 hours: Intake & Output 04/28/20 04/29/20 04/30/20 05/01/20 11:59 11:59 11:59 11:59 Intake Total 2555 / 2648 2969.142 / 2969.142 Output Total 92 / 109 195 / 195 Balance 2463 / 2539 2774.142 / 2774.142 Weight 76 lb 8.006 oz 92 lb 9.506 oz Microbiology Reports for the Last 24 Hours: Microbiology 04/30/20 09:01 Sputum - Endotracheal Tube Aspirate Gram Stain - Final 04/30/20 09:01 Sputum - Endotracheal Tube Aspirate Sputum Culture - Preliminary 04/29/20 19:04 Urine,Catheterized Urine Culture - Preliminary NO GROWTH AFTER 24 HOURS - Constitutional Comments: Not responsive - *Routine Respiratory Exam Present: decreased breath sounds Comments: Currently intubated - *Routine Cardiovascular Exam Present: RRR - *Routine Abdominal Exam Present: soft, normoactive bowel sounds. Absent: tenderness - *Routine Extremities Exam Present: cyanosis (bilateral feet). Absent: clubbing, edema - *Routine Skin Exam Present: cyanosis (feet). Absent: rash Comments: skin is cool - *Routine Neurological Exam Not responsive Assessment and Plan (1) CVA (cerebral vascular accident) Current visit: Yes Status: Acute Category: Medical Code(s): I63.9 - Cerebral infarction, unspecified (2) Severe sepsis with acute organ dysfunction Current visit: Yes Status: Acute Category: Medical Code(s): A41.9 - Sepsis, unspecified organism; R65.20 - Severe sepsis without septic shock (3) UTI (urinary tract infection) Current visit: Yes Status: Acute Qualifiers: Urinary tract infection type: site unspecified Hematuria presence: without hematuria Qualified Code(s): N39.0 - Urinary tract infection, site not specified Category: Medical Code(s): N39.0 - Urinary tract infection, site not specified (4) History of traumatic brain injury Current visit: Yes Status: Chr
[2020-05-01 08:50] LABS: Lymphocytes % 3 % (10-50); Neutrophils % 92 % (42-76); Total Cells Counted 100
[2020-05-01 08:51] LABS: Platelet Estimate Normal; RBC Morphology Normal
--- NOTE | 2020-05-01 09:21 | PC.NURSE ---
at approx 0848 Dr Atwood was notified face to face of critical ABG results. no new orders at this time r/t plans for terminal extubation.
--- NOTE | 2020-05-01 10:42 | PC.NURSE ---
1005: Respiratory at bedside; Uma Rock RN, Vitaly Bolanos, RN and Adela Winter RN at bedside to prepare for extubation; 1010: Pt extubated by Roya Bundy, mouth suctioned and cleaned; venti mask in place @ 100%, pts O2 sats@ 90; pt tolerated w/out incident;
--- NOTE | 2020-05-01 12:28 | PC.NURSE ---
1117:I entered pts's room to check on her and family, pt was not breathing and a pulse could not be palpated or auscultated. 1120: Dr Atwood notified, ER doc came to the floor to pronounce. 1125: TOAileen 1155: [facility] notified and pt ruled out for donation; Spoke w/Stacia Curran who gave case # [id number]: [facility] notified
--- NOTE | 2020-05-04 10:58 | HMH.DEADDC ---
Discharge Sum: Prov - Provider Primary care physician: Fahad Atwood MD Visit Care Team Role Provider Type Roby Flynn MD Emergency Provider Staff Physician Fahad Atwood MD Attending Provider Staff Physician Primary Care Provider Abhay Sosa MD Admit Provider Staff Physician Admitting clinician: Michael Sosa Attending physician on admission: Fahad Atwood Discharge Sum: Summary - Date and Time Date of admission: 04/29/20 23:31 - Additional Data Attending physician: Fahad Atwood MD
--- NOTE | 2020-05-04 21:50 | HMH.DCSUM ---
General - General Admission date:: 04/29/20 Discharge date: 05/01/20 HPI HPI: Ms Olmos was a 69-year-old white female who was chronically debilitated. She had grown progressively weaker over the 3 days prior to admission and was brought to the emergency room during the night. Her caregiver reported along with the progressive weakness, a facial droop on the right and right sided weakness. She had been unable to get out of bed at home or feed herself. Her speech was garbled. Her caregiver denied fever, chest pain, or SOA. She was evaluated in the ER and was admitted from the emergency room with concerns of a urinary tract infection, sepsis, and possible CVA. She was started on abx and IV fluids. Dr. Flynn was called to a rapid response early the morning of admission because the patient had become more obtunded. Blood gas at that time was adequate but she was less responsive. CT was obtained on admission and did not show any evidence of a stroke, however it was still a consideration. Dr. Flynn called Dr. Sosa and he came in to see the patient. She was quite obtunded. She had no respiratory distress. The patient was evaluated after Dr. Sosa's visit by Leslie Sahu and she was in no respiratory distress at that time. She was still obtunded. Hospital Course Hospital Course: The patient's white blood cell count was elevated at 20,000. Her lactate was also elevated. Her head CT and chest x-ray showed nothing acute. The patient was started on ertapenem and IV fluids. On 04/30/2020 at approximately 0830, her caregiver called out stating she was not breathing. A CODE BLUE was called. She was given chest compressions and some atropine and epinephrine. Her pulse did return and she was intubated. The patient had a repeat chest x-ray showing good placement of her ET tube. The patient's blood pressure was low, therefore she was given an IV fluid bolus and started on a Levophed drip. Her heart rate was in the 40s. She was transferred to stepdown. The critical nature of her illness was discussed with her sister. The patient was kept overnight on a ventilator. Her Levophed drip was maxed and she had 2 seizures during the night. She had not been responsive since intubation. Numerous attempts were made to get ABGs with no results. Her pressures remained low. She was given Ativan and had no further seizures. Her urinary output decreased. It was felt her prognosis was grave. Dr. Atwood did discuss palliative care with her family. Her care was changed to comfort measures only. Respiratory extubated the patient and a Ventimask was placed. The nurse entered her room at 1117 and she was not breathing. A pulse could not be palpated or auscultated. The ER physician came to the floor to pronounce the patient. The patient's remains were released to [facility] in [facility]. Objective Vital signs: Temp Pulse Resp BP Pulse Ox 98.0 F 98 H 44 H 147/88 H 100 05/01/20 08:00 05/01/20 10:15 05/01/20 08:00 05/01/20 10:15 05/01/20 10:15 Narrative: - Constitutional cachectic, obtunded - *Routine HEENT Exam Head: Present: normocephalic Eye: Present: EOMI, PERRL ENT: Present: mucous membranes dry - *Routine Neck Exam Present: supple. Absent: lymphadenopathy - *Routine Respiratory Exam Present: CTA bilaterally - *Routine Cardiovascular Exam Present: RRR - *Routine Abdominal Exam Present: soft, normoactive bowel sounds. Absent: tenderness - *Routine Extremities Exam Absent: cyanosis, clubbing, edema Comments: decreased pulses in bilateral feet - *Routine Skin Exam Present: warm. Absent: rash - *Routine Neurological Exam obtunded DS: Diagnosis - Discharge Diagnosis (1) CVA (cerebral vascular accident) Status: Acute (2) Severe sepsis with acute organ dysfunction Status: Acute (3) UTI (urinary tract infection) Status: Acute
== END 2020-05-01 16:40 | disposition expired | DRG 64 ==
LOC: ER 18:40 → 2ND 20:45
PROVIDERS: Admitting Provider Family Medicine; Emergency Provider Emergency Medicine; PCP Family Medicine; Visit Provider Family Medicine
DX: I63.9 Cerebral infarction, unspecified (principal); A41.9 Sepsis, unspecified organism; R65.20 Severe sepsis without septic shock; N39.0 Urinary tract infection, site not specified; R64 Cachexia; Z68.1 Body mass index [BMI] 19.9 or less, adult; R29.810 Facial weakness; F80.2 Mixed receptive-expressive language disorder; Z87.820 Personal history of traumatic brain injury; I46.9 Cardiac arrest, cause unspecified; R29.703 NIHSS score 3; Z88.8 Allergy status to other drugs, medicaments and biological substances; Z91.013 Allergy to seafood
CPT/HCPCS: 36415; 70450; 71045; 80048; 80053; 81001; 82803; 82962; 83605; 83735; 84484; 85007; 85025; 87040; 87070; 87077; 87086; 87205; 93005; 94002; 94003; 94760; 94761; 96365; 99284; 99285; J1335; J1953